=== PATIENT | male | born 1990 | race Two or more races ===

== ENCOUNTER 2024-09-11 19:18 | Emergency (ER) | payer MEDICAID, SELFPAY ==
[2024-09-11 19:44] VITALS: BP 114/76; PULSE 92; RESP 18; TEMP 36.6; O2SAT 97; BMI 22.2
[2024-09-11] MEDS: LIDOCAINE VISCOUS 2% 15 ML UDC PO (20:37)
--- NOTE | 2024-09-11 20:38 | PD.EDDENTL ---
ED Dental RME/HPI General Chief complaint: Dental/Oral/Throat Stated complaint: THROAT PAIN Time Seen by Provider: 09/11/24 19:23 Source: patient Arrival date/time: 09/11/24 19:18 Mode of arrival: ambulatory RME / HPI RME / HPI Narrative: 34-year-old male with no reported past medical history presents for lesion on his tongue. Patient reports tongue pain and pain with swallowing for the last x 4 days. Patient denies neck pain, fever, chills, chest pain, shortness of breath, dental pain. Patient denies oral trauma. HPI limited as patient is poor historian. Associated symptoms: other (Lesion on tongue.) Treatment prior to arrival: none Related Data Previous Rx's ?Medication ?Instructions ?Recorded ibuprofen 800 mg tablet 800 mg PO TID PRN pain #30 tabs 06/16/22 lidocaine HCl 2 % mucosal solution 15 ml PO PRN PRN dental pain #300 09/11/24 (Lidocaine Viscous) mL valganciclovir 450 mg tablet 900 mg (2 x 450 mg) PO BID 1 day 09/12/24 (Valcyte) #4 tabs Allergies Allergy/AdvReac Type Severity Reaction Status Date / Time No Known Allergies Allergy Verified 09/03/22 12:08 Review of Systems Constitutional Constitutional: Denies fever(s), Reports poor appetite and Denies night sweats ENT Ears, Nose, Mouth, and Throat: Denies dental pain, Denies dysphagia, Denies lip swelling, Reports mouth lesions (Left lateral tongue.), Denies neck pain, Denies nose pain, Reports odynophagia and Denies tongue swelling Cardiovascular Cardiovascular: Denies chest pain, Denies diaphoresis and Denies dyspnea Respiratory Respiratory: Denies cough, Denies dyspnea, Denies stridor and Denies wheezing Gastrointestinal Gastrointestinal: Denies dysphagia, Denies nausea and Reports odynophagia Musculoskeletal Musculoskeletal: Denies neck pain Integumentary/Breasts Skin/Breast: Denies lesions Allergic/Immunologic Allergic/Immunologic: Denies lip swelling, Denies tongue swelling and Denies wheezing Past Medical History Past Medical History CARDIAC: Negative Cardiac Disorders or Congestive Heart Failure RESPIRATORY: Negative Chronic Obstructive Pulmonary Disease (COPD) or Asthma GENITOURINARY: Negative Renal Disease ENDOCRINE: Negative Diabetes Mellitus Type 1 or Diabetes Mellitus Type 2 HEMATOLOGIC: Negative Sickle Cell Disease Social History SMOKING STATUS: Current every day smoker ED Exam General General appearance: Present alert and in no apparent distress Eye Eye exam: Present normal appearance, PERRL and EOMI Expanded ENT Exam Mouth exam: Present other (Ulcer to the left lateral tongue with surrounding erythema. No purulent discharge. No gingival lesions.); Absent drooling, trismus or lip swelling Teeth exam: Present dental caries; Absent gingival swelling Throat exam: Present normal inspection; Absent tonsillar erythema, tonsillomegaly, tonsillar exudate, R peritonsillar mass, L peritonsillar mass or muffled voice Neck Neck exam: Present normal inspection and full ROM Chest Chest inspection: Present normal inspection and symmetric chest wall rise Respiratory Respiratory exam: Present normal lung sounds bilaterally; Absent respiratory distress Cardiovascular Cardiovascular exam: Present regular rate and +S2 Abdominal Exam Abdominal exam: Present soft; Absent distention Extremities Exam Extremities exam: Present normal inspection and full ROM Back Exam Back exam: Present normal inspection and full ROM Neurological Exam Neurological exam: Present alert and normal gait Skin Skin exam: Present warm, dry and intact Course Quality Measures none Orders Category Date Time Status Lidocaine 2% Viscous [Xylocaine 2% Viscous] Med 09/11/24 20:07 Discontinued 15 ml PO X1 ONE Vital Signs Vital signs: Vital Signs Temperature 97.8 F 09/11/24 19:44 Pulse Rate 92 09/11/24 19:44 Respiratory Rate 18 09/11/24 19:44 Blood Pressure 114/76 09/11/24 19:44 Pulse Oximetry (%) 97 09/11/24 19:44 Oxygen Delivery Method Room Air 09/11/24 19:44 Pulse ox 97% on room air. Within normal limits. Dental / Oral MDM Narrative MDM Narrative:: 34-year-old male presenting with lesion to the left lateral tongue. Possible herpatic ulcer, however no surrounding lesions on the gingiva. Patient denied trauma during my history and physical, however he reported to nursing staff that he bit his tongue several days ago. 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 Patient stable at time of discharge. Agreeable with plan to follow-up outpatient with primary care within the next week. Patient data External records reviewed:: [facility] previous records Clinical information provided by:: patient Social determinants that could affect healthcare access:: none Patient has the following chronic illnesses:: None reported. How is presenting disease/condition affected by chronic disease/condition?: no chronic disease Evaluation data The following diagnostics were reviewed and interpreted by me:: other (specify) Lab and/or radiology exams considered but not ordered:: Considered not ordered. Interpretation Summary: Considered not ordered. Medications / Prescriptions Medications or Prescriptions considered but not ordered:: Rx given. Medication administrations:: Medication Administration History Discontinued Medications Lidocaine HCl (Lidocaine Viscous 2% 15 Ml Udc) 15 ml PO X1 ONE Stop: 09/11/24 20:08 Last Admin: 09/11/24 20:37 Dose: 15 ml Documented By: ABBY Rx given. Consultations Consultation(s) initiated? (list below): No Diagnosis Dental Differential Diagnosis: gingival abscess, dental caries, dental abscess, aphthous ulcer and other Most likely diagnosis given after review of the tests above:: Tongue lesion. Admission Indicated Admission indicated?: not indicated Admission Request Was there a request for admission?: No Disposition Plan Disposition Plan: Discharge Discharge Attestation Discharge Attestation: The patient and all family members were given an opportunity to ask questions and understood the discharge instructions. Discharge instructions specifically effects, indications for sooner follow up or return to the emergency department, and the expected course of current diagnosis. Patient condition: Stable Discharge Plan Plan Patient Disposition: HOME (Self Care) Disposition Comment: stable Prescriptions/Referrals Prescriptions/Med Rec: New lidocaine HCl [Lidocaine Viscous] 2 % solution 15 ml PO PRN PRN (Reason: dental pain ) Qty: 300 0RF valganciclovir [Valcyte] 450 mg tablet 900 mg PO BID 1 Days Qty: 4 0RF No Action ibuprofen 800 mg tablet 800 mg PO TID PRN (Reason: pain) Qty: 30 0RF Problem List Clinical Impression: Tongue lesion Patient/Caregiver Discharge Instructions Other Activity Instructions:: Take valacyclovir twice daily for 1 day for possible HPV infection. Use 15 mL viscous lidocaine as needed for tongue pain once every 6 hours as needed. Follow-up with primary care for further evaluation and treatment within the next 2 to 3 days. Return to the ED if your symptoms worsen or change. Print Language: Thai Stand Alone Forms: [employer] Award Info., Patient Portal Info Letter PA/CYNTHIA Supervising Physician PA/CYNTHIA Supervising Physician: Dr. Begum
== END 2024-09-11 20:43 | disposition home or self-care (01) ==
LOC: SERX 20:46
PROVIDERS: Emergency Provider Emergency Medicine
DX: K14.9 Disease of tongue, unspecified (principal); F17.210 Nicotine dependence, cigarettes, uncomplicated
CPT/HCPCS: 99282; J3490